=== PATIENT | female | born 1970 | race Caucasian/White ===

== ENCOUNTER → 2016-08-31 | Outpatient (CLI) | payer BC ==
[~2016-08-31] MED LIST: ASCA500 PO; CHOL1000 PO; CIPR1TAB10 PO; LORA-741 PO; MTR600X PO; OMEG10007 PO; OXYC-57 PO; SULF800T23 PO; SUMA25TA12 PO; SYN50 PO
== END | disposition home or self-care (01) ==
LOC: C.PAPS 17:03
PROVIDERS: ATTEND Obstetrics & Gynecology
DX: Z01.419 Encounter for gynecological examination (general) (routine) without abnormal findings (principal)

== ENCOUNTER → 2016-11-06 | Outpatient (CLI) | payer BC ==
[~2016-11-06] MED LIST changes: -SULF800T23 PO
== END | disposition home or self-care (01) ==
LOC: C.PATH 14:15
PROVIDERS: ATTEND Obstetrics & Gynecology
DX: N92.0 Excessive and frequent menstruation with regular cycle (principal)

== ENCOUNTER → 2016-11-20 | Outpatient (CLI) | payer BC | END | disposition home or self-care (01) | LOC: C.LAB1850 08:50 | PROVIDERS: ATTEND Internal Medicine | DX: E03.9 Hypothyroidism, unspecified (principal) ==

== ENCOUNTER 2017-01-22 08:01 | Observation (INO) | payer BC ==
[2017-01-12 10:10] VITALS: BMI 24.0
--- NOTE | 2017-01-12 10:39 | PAT Medication Instructions ---
Service Date Jan 12, 2017. Current Home Medication List Ascorbic Acid (Vitamin C), 500 MG PO QPM Cholecalciferol (Vitamin D3), 1 TAB PO QPM Fish Oil (Perris-3), 1 CAP PO QPM Levothyroxine Sodium (Synthroid), 50 MCG PO QAM Lorazepam (Ativan), 0.5 MG PO BID PRN for Anxiety/Agitation Sumatriptan Succinate (Imitrex), 25 MG PO PRN Medication Instructions For Your Scheduled Surgery - Hold the following medications as of 01/13/17: Fish Oil (Perris-3), 1 CAP PO QPM - Take the following medications the morning of surgery with a sip of water OTHERWISE NOTHING TO EAT OR DRINK AFTER MIDNIGHT: Lorazepam (Ativan), 0.5 MG PO BID PRN for Anxiety/Agitation Levothyroxine Sodium (Synthroid), 50 MCG PO QAM Sumatriptan Succinate (Imitrex), 25 MG PO PRN - Take the following medications as scheduled the night before surgery: Lorazepam (Ativan), 0.5 MG PO BID PRN for Anxiety/Agitation Ascorbic Acid (Vitamin C), 500 MG PO QPM Cholecalciferol (Vitamin D3), 1 TAB PO QPM Sumatriptan Succinate (Imitrex), 25 MG PO PRN If you have any questions please call us at [phone] or [phone] or [phone]
[2017-01-12 10:58] LABS: BASO % 0.3 %; BASO ABS # 0.02 K/uL (0-0.2); COMPLETE YES; EOS % 0.3 %; HEMATOCRIT 40.5 % (37-47); LYMPH % 25.4 %; LYMPH ABS # 1.62 K/uL (1.2-3.4); MEAN CELL VOLUME 85.6 fL (80-100); MEAN CORPUSCULAR HEMOGLOBIN 28.1 pg (25-34); MEAN CORPUSCULAR HGB CONC 32.8 g/dl (32-36); MEAN PLATELET VOLUME 11.5 fL (7.4-10.4); MONO % 4.2 %; NEUT % 69.8 %; PLATELET COUNT 182 K/uL (130-400); RED BLOOD COUNT 4.73 M/uL (4.2-5.4); WHITE BLOOD COUNT 6.39 K/uL (4.8-10.8)
[2017-01-12 11:51] LABS: BUN/CREATININE RATIO 17.2 (10-20); CREATININE 0.71 mg/dl (0.60-1.20); POTASSIUM 4.1 mmol/L (3.5-5.1)
[2017-01-12 13:29] LABS: CALCIUM 9.5 mg/dl (8.5-10.1)
[~2017-01-22] VITALS: Ht 170.2 cm; Wt 69.4 kg
[2017-01-22] VITALS (7 sets, daily range): BP systolic 106–138; BP diastolic 66–75; PULSE 61–77; TEMP 36.6–37.2; O2SAT 98–100; Ht 170.2 cm; Wt 69.4 kg
[~2017-01-22 08:01] MED LIST changes: +CEFAZOLIN 2000 MG/60 ML D5W 50 ML IV SCH; -CIPR1TAB10 PO; +LACTATED RINGER'S 1000ML 1,000 ML IV SCH; -MTR600X PO; -OXYC-57 PO
[2017-01-22] MEDS ORDERED: FENTANYL CITRATE INJ 50 MCG/1 ML 2 ML VIAL ONE (08:23)
[2017-01-22] MEDS ORDERED: MIDAZOLAM HCL 1 MG/ML 2ML VIAL ONE (08:23)
[2017-01-22] MEDS ORDERED: HYDROmorphone INJ 2 MG/ML SYR/VIAL ONE (08:23)
[2017-01-22 09:02] LABS: PREG INTERNAL NEGATIVE QC NEG CLEAR BACKGROUND; PREG INTERNAL POSITIVE QC POS CONTROL LINE
[2017-01-22] MEDS ORDERED: BUPIVACAINE 0.5 % 5 MG/1 ML MPF 30ML VIAL ONE (09:30)
--- NOTE | 2017-01-22 09:32 | History & Physical Bridge Note ---
H&P Re-Evaluation Bridge Note: I have examined the patient, reviewed the History & Physical and in the interval since the performance of the History & Physical I have noted the following changes of clinical significance: No changes noted
[2017-01-22] MEDS ORDERED: EpHEDrine SULFATE INJ 50 MG/ML AMP IV PRN (09:45)
[2017-01-22] MEDS ORDERED: FENTANYL CITRATE INJ 50 MCG/1 ML 2 ML VIAL IV PRN (09:45)
[2017-01-22] MEDS ORDERED: ONDANSETRON INJ 2 MG/ML 2 ML VIAL IV PRN ×2 (09:45→12:45)
[2017-01-22] MEDS ORDERED: ATROPINE SULFATE 0.1 MG/ML 5ML SYR IV PRN (09:45)
[2017-01-22] MEDS ORDERED: HYDROmorphone INJ 1 MG/ML SYR IV PRN (09:45)
[2017-01-22] MEDS ORDERED: METOCLOPRAMIDE HCL INJ 5 MG/ML 2 ML VIAL ONE (10:37)
[2017-01-22] MEDS ORDERED: ONDANSETRON INJ 2 MG/ML 2 ML VIAL ONE (10:37)
[2017-01-22] MEDS ORDERED: NEOSTIGMINE METHYLSULFATE 5 MG/5 ML SYR ONE (10:37)
[2017-01-22] MEDS ORDERED: PROPOFOL IV EMULSION 10 MG/ML 20 ML VIAL IV ONE (10:37)
[2017-01-22] MEDS ORDERED: GLYCOPYRROLATE INJ 0.2 MG/ML VIAL ONE (10:37)
[2017-01-22] MEDS ORDERED: LIDOCAINE HCL 2% 2 ML VIAL (20MG/ML) ONE (10:37)
[2017-01-22] MEDS ORDERED: DiphenhydrAMINE HCL 50 MG/ML VIAL ONE (10:37)
[2017-01-22] MEDS ORDERED: DEXAMETHASONE SOD INJ 4 MG/ML VIAL ONE (10:37)
[2017-01-22] MEDS ORDERED: LARYING-O-JET KIT (LTA) ONE ×2 (10:41)
[2017-01-22] MEDS ORDERED: METHYLENE BLUE 0.5% 10 ML VIAL ONE ×2 (10:41→11:59)
[2017-01-22] MEDS ORDERED: TISSEEL FIBRIN SEALANT 4ML TOP ONE (11:56)
[2017-01-22] MEDS ORDERED: LACTATED RINGER'S 1000ML 1,000 ML IV SCH (12:42)
[2017-01-22] MEDS ORDERED: IBUPROFEN 600 MG TAB PO PRN (12:45)
[2017-01-22] MEDS ORDERED: ZOLPIDEM TARTRATE 5 MG TAB PO PRN (12:45)
[2017-01-22] MEDS ORDERED: SIMETHICONE 80 MG CHEW PO PRN (12:45)
[2017-01-22] MEDS ORDERED: OXYCODONE/ACETAMINOPHEN 5-325 TAB PO PRN ×2 (12:45)
[2017-01-22] MEDS ORDERED: PROMETHAZINE HCL INJ 12.5 MG in SODIUM CHLORIDE 0.9% 50ML 50 ML IV PRN (12:45)
[2017-01-22] MEDS ORDERED: ACETAMINOPHEN 325 MG TAB PO PRN (12:45)
[2017-01-22] MEDS ORDERED: MEPERIDINE HCL 50 MG/ML CARP IV PRN ×2 (12:45)
[2017-01-22] MEDS ORDERED: PROMETHAZINE HCL INJ 25 MG in SODIUM CHLORIDE 0.9% 50ML 50 ML IV PRN (12:45)
[2017-01-22] MEDS ORDERED: MAGNESIUM HYDROXIDE SUSP 30 ML UDC PO PRN (12:45)
[2017-01-22] MEDS ORDERED: BISACODYL 10 MG SUPP PR PRN (12:45)
[2017-01-22] MEDS ORDERED: KETOROLAC TROMETHAMINE 30 MG/ML VIAL IV. PRN (12:45)
--- NOTE | 2017-01-22 12:57 | [facility] Operative Report ---
Operative Report Operative Date Jan 22, 2017. Pre-Operative Diagnosis Fibroids, menorrhagia, enlarged uterus >250cc Post-Operative Diagnosis Same as preop Procedure(s) Performed Robotic-assisted Total Laparoscopic Hysterectomy with excite procedure, bilateral salpingectomy, mesentery injury, cystoscopy Surgeon Dr. Littlejohn Credentialing Specialist Surgeon(s) Dr. Evans Estimated Blood Loss 50 cc Findings Patient was given a general anesthetic IV antibiotics given prepped and draped in dorsolithotomy position in [facility]. Nunes catheter used to drain her bladder V care placed into her uterus uterus was enlarged approximately 14 weeks size. V-care then sewn in place in the usual fashion gloves changed and a supraumbilical incision made with scalpel using open Technique We Dissected down through Subcutaneous Fat to the Fashion the Midline Splitting the Rectus Muscles and Entering the Peritoneal Cavity Blunt-Tipped Trocar Placed Balloon Inflated to Secure the Port and CO2 Gas to Insufflate the Upper Abdomen Findings Upper Abdomen Normal No Sign of Visceral Organ Injury. After Deep Trendelenburg Pelvis Was Visualized the Fibroid Appeared Benign Uterus Was Significantly Enlarged and Somewhat Bulbous. Was Able to Manipulate Using the Care and Identify That the Ureters Followed Normal Courses in Both Left and Right Sides. 2 Robotic Ports Were Placed on the Right under Direct Visualization One on the Left and the Left Upper Quadrant Accessory Port Blunt Bladeless. Robot docked arm #1 was monopolar esperanza on #2 was bipolar [place] arm #3 was prograsp. Procedure was begun by removing the fallopian tubes first first on the left side than the right side to further exposure. Using the VK we pushed the uterus away from the patient's left side using the third arm of the progress to help manipulate it as well identified the ureter on the left side and then the blood supply distal to the ovary this was then coagulated and then cut. Same process with the round ligament uterine vessels were then skeletonized was able to identify the V care cuff and make an appropriate bladder flap. We carefully then coagulated the uterine vessels staying medial and away from the ureter on the left side. The exact same process was continued on the right the bladder flap was then fully dissected away. We noted at this time that there was a small rent in the mesentery of the large bowel. This was as the V care manipulator and had perforated through the uterus. There was no evidence of bowel spillage as a result of this though I did call in Dr. Avalos from general surgery to assess reassessed the full extent of it there is no vascular injury and no bowel injury. As a result since it was not bleeding we elected to leave it alone. Note the V care had been pulled back and back into the uterus and was still able to be used for manipulation. At this stage we then perform the anterior colpotomy staying medial vulvar uterine vessel ligations and the cervix from the vagina. Specimen was too big to fit through so specimen was placed in the left upper quadrant. Hemostasis was excellent at this stage. We then did incise exchange arm #1 became the M EGA needle class c truck driver arm #2 became the [employer] grasper. A suture to 2-OV LOC 90 day was then placed through the accessory port. Cuff was then closed left to right back right to left ensuring full-thickness bites of at least a centimeters suture was cut so there was no tail needle removed the excess report after generous irrigation and suction the cuff was hemostatic. We irrigated and suctioned the area. Cystoscopy was then preformed by removing the Nunes catheter performing cystoscopy it should be noted methylene blue was given by anesthesia at the time of cuff closure. No evidence of injury to the bladder or abnormalities in the good strong jets of bluish dye from both the left and right ureter openings. The cystoscope removed new Nunes catheter placed. We then applied Tisseel to the areas of the cuff and the ovarian pedicles and the uterine vessels as well as to the area of the minor mesentery injury. Of note this was less than 2 cm. This was hemostatic again after re-look. Robot was then undocked after intimacy been removed we then used a 5 mm laparoscope through one of the robotic ports removed the 12 mm umbilical port. A 15 mm port was placed under direct visualization this allowed us to place the large surgical bag. Uterus was grasped and placed into the bag. The bag was then brought up to the umbilical incision which was extended a small amount. Using X site technique we were able to fully remove the specimen without any perforation of the bag. Noted to be a large specimen. We did use a small Kelsey tractor in the bag as well and this was removed along with the bag entirely. After reinsertion inspecting with the laparoscope and some irrigation again hemostasis seemed excellent was no active bleeding from the cuff uterine vessels or the small mesentery region of interest. Camera removed ports removed gas allowed to escape and incisions injected with 0.5% Marcaine fascia closed carefully umbilical incision with several 0 Vicryl's. Subcutaneous fat irrigated and closed with 0 Vicryl deep stitch into the left upper quadrant incision and then 4-0 subcuticular Monocryl closures and Dermabond Date of the procedure urine was clear as blue there was no vaginal bleeding patient was in stable condition and sent to recovery room in stable condition sponge and management counts correct Specimens A: surgically-resected uterus, cervix, bilateral fallopian tubes Drains Nunes Anesthesia General Complication(s) Mesentery injury Disposition Recovery Room / PACU I attest to the content of the Intraoperative Record and any orders documented therein. Any exceptions are noted below.
[2017-01-22] MEDS ORDERED: OXYC-57 PO (12:58)
[2017-01-22] MEDS ORDERED: MTR600X PO (12:58)
--- NOTE | 2017-01-22 12:58 | Discharge Instructions ---
Discharge Instructions Date of Service Jan 22, 2017. Admission Reason for Admission: Leiomyoma Of Uterus, Menorrhagia Discharge Discharge Diagnosis / Problem: uterine leiomyoma Discharge Goals Goal(s): Routine recovery after surgery Activity Recommendations Activity Limitations: per Instructions/Follow-up section . Instructions / Follow-Up Instructions / Follow-Up POST OPERATIVE: BOWEL FUNCTION/MEDICATIONS: 1. Constipation pain and discomfort are the most common complaints 5-7 days after surgery. Points 2-6 address the things that can help. 2. Chewing gum can help stimulate the gut and help improve digestion and motility. 3. Milk of Magnesia 1-2 times per day until return of bowel function. 4. Colace is a stool softener that helps. Taking this 2-3 times per day until bowel function returns to normal is highly recommended. 5. Dulcolax is a laxative that may be used if several days have passed without a bowel movement. Alternatively Miralax may be used daily instead. 6. Drink plenty of fluids as this will also reduce constipation. 7. Narcotic pain medications will be prescribed by your physician. They are safe to use and we encourage you to use them. If you are not allergic, ibuprofen will also be prescribed. Many patients will be able to transition off of the narcotic medications to ibuprofen by postoperative day 3. ACTIVITY RECOMMENDATIONS: 1. Get plenty of rest and listen to your body. If you are tired, take a nap. 2. You may shower, but do not take a tub bath until you see your doctor at the 2 week post operative visit. 3. Absolutely NO intercourse and nothing in the vagina until you are examined by your doctor at the 6 week visit. At that visit it will be determined when such activities can be resumed. This can range from 6-12 weeks after your surgery depending on healing time. 4. The main physical activity in the first week should be walking. By the second week you can slowly increase activity. There are no limits on walking up and down stairs. 5. Do not lift more than 5-10 lbs for 4 weeks. Remember the "one-handed rule", i.e. if you can lift something with only one hand it's likely okay. 6. Minimize junior staff accountant like vacuuming and exercising for 4 weeks. "Overdoing it" can lead to incisions not healing, pain and vaginal bleeding , so again, listen to your body. 7. Driving can be resumed when you feel able. Do not drive within 24 hours of taking a narcotic medication. EXPECTATIONS: 1. Vaginal spotting, bleeding and discharge are common after surgery. There may even be an odor to the discharge which is often related to sutures used in the vagina. If you experience heavy vaginal bleeding, call the office number day or night [phone]. 2. Bladder discomfort is common after surgery from the catheter. This usually resolves in 1-2 weeks. 3. By the end of the 3rd or 4th week you should be feeling much better. It may take up to 6 weeks for your energy levels to return to normal. 4. Narcotic medications have side effects such as: dizziness, headache, nausea and/or vomiting. If you suspect your pain medication is causing problems, call our office and we may be able to prescribe an alternate medication. 5. The skin incisions are often covered with a liquid bandage. This will gradually peel off over time. CALL THE OFFICE IF YOU HAVE ANY OF THE FOLLOWIN. Temperature of 101 degrees or higher. 2. Severe abdominal or pelvic pain not relieved by pain medication. 3. Persistent nausea or vomiting. 4. Increased pain with urination or difficulty urinating. 5. Bright red bleeding that soaks more than 1 pad per hour. CONTACT PHONE NUMBERS: Main Office: [phone] Surgical Nurse: [phone] extension [phone] Avoid all tobacco products. If you need help to stop smoking, call [place]'s FREE QUITLINE at . This is a free call. Current Hospital Diet Patient's current hospital diet: Discharge Diet Recommended Diet: Regular Diet Procedures Procedures Performed: Robotic-assisted Total Laparoscopic Hysterectomy with excite procedure, bilateral salpingectomy, mesentery injury, cystoscopy Pending Studies Studies pending at discharge: no Medical Emergencies . Who to Call and When: Medical Emergencies: If at any time you feel your situation is an emergency, please call 911 immediately. . Non-Emergent Contact Non-Emergency issues call your: Diversity Specialist . . "Provider Documentation" section prepared by Geraldo Littlejohn. . VTE Core Measure Inpt VTE Proph given/why not?: Julito Nugent, DIONNE's
--- NOTE | 2017-01-22 13:25 | Progress Note ---
Progress Note Date of Service Jan 22, 2017. Progress Note Spoke with about surgery. Discussed small rent in large bowel mesentery and how we addressed it and how we would follow it. SARAVANAN
--- NOTE | 2017-01-22 13:34 | Anesthesiology Progress Note ---
Anesthesia Post Op Note Date & Time Jan 22, 2017 at 13:34 Vital Signs Pain Intensity: 0 Vital Signs Past 12 Hours Date Time Temp Pulse Resp B/P (MAP) Pulse Ox O2 Delivery O2 Flow Rate FiO2 01/22/17 13:30 36.6 73 13 122/77 100 Nasal Cannula 2 01/22/17 13:20 84 12 142/74 100 Nasal Cannula 2 01/22/17 13:10 80 9 140/78 100 Mask 10 01/22/17 13:00 81 13 130/71 100 Mask 10 01/22/17 12:50 36.6 85 13 146/75 100 Mask 10 01/22/17 08:25 37.2 64 18 138/66 (90) 100 Room Air Notes Mental Status: alert / awake / arousable, participated in evaluation Pt Amnestic to Procedure: Yes Nausea / Vomiting: adequately controlled Pain: adequately controlled Airway Patency, RR, SpO2: stable & adequate BP & HR: stable & adequate Hydration State: stable & adequate Anesthetic Complications: no major complications apparent
[2017-01-22] MEDS ORDERED: IV FLUIDS COMPLETED PRN (13:45)
[2017-01-22 18:38] LABS: HEMATOCRIT 35.7 % (37-47)
[2017-01-22] MEDS ORDERED: DOCUSATE SODIUM 100 MG CAP PO SCH (21:00)
--- NOTE | 2017-01-23 08:06 | Discharge Summary ---
Discharge Summary Date of Service Jan 23, 2017. Discharge Summary Patient had total laparoscopic hysterectomy for a massive uterus on January 22 she was discharged the same day. Her surgery was complicated by a minor laceration of the mesentery of the large bowel. This was assessed by general surgery and found not to be a problem. Course in hospital was uncomplicated and by the evening she met discharge criteria specifically she was passing flatus ambulating well tolerating an oral diet no extremity pain. Physical exam vital signs are stable she was afebrile abdomen was soft and nontender extremity exam negative. Impression and plan hemoglobin 12.2+ no obvious ongoing bleeding meets criteria home Percocet and Motrin
== END 2017-01-22 20:00 | disposition home or self-care (01) ==
LOC: C.ACU 08:01 → C.MS4N 08:45 → ENRESERV 13:57
PROVIDERS: ADMIT Obstetrics & Gynecology; ATTEND Obstetrics & Gynecology
DX: D25.1 Intramural leiomyoma of uterus (principal); N80.0 Endometriosis of uterus; N85.2 Hypertrophy of uterus; E03.9 Hypothyroidism, unspecified; E55.9 Vitamin D deficiency, unspecified; F41.9 Anxiety disorder, unspecified; Z85.3 Personal history of malignant neoplasm of breast; Z79.899 Other long term (current) drug therapy

== ENCOUNTER → 2017-02-02 | Outpatient (CLI) | payer BC ==
[~2017-02-02] MED LIST changes: -CEFAZOLIN 2000 MG/60 ML D5W 50 ML IV SCH; -LACTATED RINGER'S 1000ML 1,000 ML IV SCH; +MTR600X PO; +OXYC-57 PO
[2017-02-02 11:25] LABS: URINE APPEARANCE CLEAR (CLEAR); URINE BILIRUBIN NEG (NEG); URINE COLOR YELLOW; URINE EPITHELIAL CELL AUTO >30 /lpf (0-5); URINE NITRITE NEG (NEG); URINE SPECIFIC GRAVITY 1.008 (1.000-1.030); UROBILINOGEN NEG (NEG)
[2017-02-02 11:28] LABS: MANUAL MICROSCOPIC REQUIRED? NO; REVIEW REQ? NO
== END | disposition home or self-care (01) ==
LOC: C.LABBC 08:38
PROVIDERS: ATTEND Obstetrics & Gynecology
DX: R39.9 Unspecified symptoms and signs involving the genitourinary system (principal)

== ENCOUNTER → 2017-06-25 | Outpatient (CLI) | payer BC ==
--- NOTE | 2017-06-28 07:49 | MAMMOGRAPHY REPORT ---
BILATERAL DIGITAL SCREENING MAMMOGRAM TOMOSYNTHESIS WITH CAD: 06/25/2017 CLINICAL HISTORY: Asymptomatic. Personal history of breast cancer. TECHNIQUE: Breast tomosynthesis in addition to standard 2D mammography was performed. Current study was also evaluated with a Computer Aided Detection (CAD) system. COMPARISON: Comparison is made to exams dated: 05/25/2016 ultrasound, 05/25/2016 mammogram, 08/21/2015 m ammogram, 12/21/2014 ultrasound, 12/21/2014 mammogram, and 12/17/2014 mammogram - [facility]. BREAST COMPOSITION: The tissue of both breasts is heterogeneously dense, which may obscure small mas ses. FINDINGS: No suspicious masses, calcifications, or areas of architectural distortion are noted in ei ther breast. There has been no significant interval change compared to prior exams. There are stable postsurgical changes in the right superior breast from prior lumpectomy, including stable density, a rchitectural distortion, and surgical clips at the lumpectomy bed. Surgical clips are also again not ed in the right axilla. Mild diffuse right breast skin thickening is not significantly changed and i s likely related to prior radiation therapy. Scattered bilateral benign-appearing calcifications are not significantly changed. Small circumscribed benign-appearing 5 mm mass with an associated coarse calcification in the right upper outer quadrant is stable compared to multiple prior exams. IMPRESSION: ACR BI-RADS CATEGORY 2: BENIGN There is no mammographic evidence of malignancy. A 1 year screening mammogram is recommended. The pa tient will receive written notification of the results. Approximately 10% of breast cancers are not detected with mammography. A negative mammographic report should not delay biopsy if a clinically suggestive mass is present. Mariaelena Carrasco M.D. /:06/25/2017 15:05:06 Outpatient Physical Therapist: Flor TRINIDAD(Marian)(M), [facility] letter sent: Normal 1/2 BI-RADS Code: ACR BI-RADS Category 2: Benign
== END | disposition home or self-care (01) ==
LOC: C.MAMM 08:53
PROVIDERS: ATTEND Internal Medicine Hematology & Oncology
DX: Z12.31 Encounter for screening mammogram for malignant neoplasm of breast (principal)

== ENCOUNTER → 2017-06-30 | Outpatient (CLI) | payer BC | END | disposition home or self-care (01) | LOC: C.LABSPEC 17:10 | PROVIDERS: ATTEND Urology | DX: R31.0 Gross hematuria (principal) ==

== ENCOUNTER → 2017-07-27 | Outpatient (CLI) | payer OTHER ==
[~2017-07-27] MED LIST changes: +OPTIRAY 320 IV PRN
[2017-07-27 09:34] LABS: ALBUMIN 3.9 gm/dl (3.4-5.0); ALKALINE PHOSPHATASE 63 U/L (45-117); ALT/SGPT 33 U/L (12-78); AST/SGOT 17 U/L (15-37); BLOOD UREA NITROGEN 17 mg/dl (7-18); CALCIUM 9.2 mg/dl (8.5-10.1); CARBON DIOXIDE 27 mmol/L (21-32); CREATININE 0.85 mg/dl (0.60-1.20); GLUCOSE 89 mg/dl (70-99); POTASSIUM 3.7 mmol/L (3.5-5.1); SODIUM 139 mmol/L (136-145); TOTAL PROTEIN 7.9 gm/dl (6.4-8.2)
--- NOTE | 2017-07-27 10:38 | DIAGNOSTIC IMAGING REPORT ---
CT OF THE ABDOMEN AND PELVIS WITHOUT CONTRAST CLINICAL HISTORY: Gross hematuria. Recurrent urinary tract infection. COMPARISON STUDY: CT of the abdomen and pelvis May 27, 2015 and renal ultrasound April 14, 2016. TECHNIQUE: Axial images of the abdomen and pelvis were obtained without IV contrast. Images were reviewed in the axial, sagittal, and coronal planes. A dose lowering technique was utilized adhering to the principles of ALARA. FINDINGS: Lung bases are clear. No renal, ureteral or bladder calculi are present. There is no hydronephrosis or hydroureter. Sensitivity for detection of urothelial lesions is diminished on this unenhanced exam. Pelvic calcifications reflect phleboliths. There is no perinephric infiltration. No renal lesions are identified on this unenhanced exam. Several hypodense hepatic lesions are similar to study of May 27, 2015. These are likely benign. A 9 mm fat attenuation focus along the right hepatic lobe capsule is benign. There is no evidence for a bowel obstruction. Caliber of small and large bowel is normal. No abdominal or pelvic lymphadenopathy is present. There is no ascites. No suspicious skeletal lesions are identified. The uterus is surgically absent. IMPRESSION: 1. No urinary calculi or hydronephrosis. 2. No acute process within the abdomen or pelvis on unenhanced exam. 3. Several hypodense hepatic lesions which are suboptimally assessed on this unenhanced exam but are likely benign when correlating with prior abdominal CT of June 06, 2015. Electronically signed by: Jeffy Smith M.D. 07/27/2017 10:36 AM Dictated Date/Time: 07/27/2017 10:24 AM
== END | disposition home or self-care (01) ==
LOC: C.CTS 08:23
PROVIDERS: ATTEND Urology
DX: R31.0 Gross hematuria (principal); K76.9 Liver disease, unspecified